=== PATIENT | male | born 1970 | race Caucasian/White ===

== ENCOUNTER 2017-06-06 05:29 | Emergency (ER) | payer BC, OTHER ==
[~2017-06-06] VITALS: Ht 188 cm; Wt 103.6 kg
[2017-06-06 05:32] VITALS: TEMP 36.5; O2SAT 94; Ht 188 cm; Wt 103.6 kg
[2017-06-06] MEDS ORDERED: NAPR1TAB9 PO (05:56)
[2017-06-06 06:10] LABS: CALCIUM 8.4 mg/dl (8.5-10.1); CREATININE 1.26 mg/dl (0.60-1.40); POTASSIUM 3.7 mmol/L (3.5-5.1)
--- NOTE | 2017-06-06 07:44 | DIAGNOSTIC IMAGING REPORT ---
CT OF THE HEAD WITHOUT CONTRAST CLINICAL HISTORY: eval for trauma COMPARISON STUDY: No previous studies for comparison. TECHNIQUE: Helical axial images of the head were obtained without IV contrast. Automated exposure control was utilized for the study. A dose lowering technique was utilized adhering to the principles of ALARA. FINDINGS: No acute intracranial hemorrhage, midline shift or mass effect is present. Brain volume is normal. Ventricular system is normal. Basilar cisterns are patent. There are no extra-axial collections. Cedillo-white differentiation is maintained. Facial bones are better depicted on the maxillofacial CT. There is no calvarial fracture. IMPRESSION: 1. No acute intracranial findings. 2. No calvarial fracture. Electronically signed by: Sivakumar Walton M.D. 06/06/2017 7:43 AM Dictated Date/Time: 06/06/2017 6:46 AM
--- NOTE | 2017-06-06 07:48 | DIAGNOSTIC IMAGING REPORT ---
MAXILLOFACIAL CT WITHOUT CONTRAST CLINICAL HISTORY: eval for trauma COMPARISON STUDY: None. TECHNIQUE: A maxillofacial CT was performed without IV contrast. Coronal and sagittal reformats were viewed. A dose lowering technique was utilized adhering to the principles of ALARA. FINDINGS: Note is made of a mildly displaced fracture of the anterior bony nasal septum. This is age indeterminate although probably old. No acute definite acute facial fracture is identified. Left inferior facial soft tissue swelling is noted. Alignment of the temporomandibular joints is anatomic. The globes are intact. There is no retrobulbar hematoma. No skull base fracture is identified. There is mild mucosal thickening of the sinuses. IMPRESSION: 1. Mildly displaced anterior nasal septal fracture which is age indeterminate although probably old. No additional facial fractures. 2. Left inferior facial soft tissue swelling. Electronically signed by: Sivakumar Walton M.D. 06/06/2017 7:47 AM Dictated Date/Time: 06/06/2017 7:43 AM
--- NOTE | 2017-06-06 07:55 | DIAGNOSTIC IMAGING REPORT ---
CT OF THE CERVICAL SPINE WITHOUT CONTRAST CLINICAL HISTORY: eval for trauma COMPARISON STUDY: No previous studies for comparison. TECHNIQUE: Helical axial images of the cervical spine were obtained without IV contrast. Sagittal and coronal reconstructions were viewed. A dose lowering technique was utilized adhering to the principles of ALARA. FINDINGS: Alignment of the cervical spine is anatomic. There is no acute fracture. Craniocervical junction is intact. There is moderate anterior osteophytosis. AP dimension of the canal appears congenitally narrow. There is no prevertebral edema. IMPRESSION: No acute cervical spine fracture or subluxation. Electronically signed by: Sivakumar Walton M.D. 06/06/2017 7:53 AM Dictated Date/Time: 06/06/2017 7:52 AM
[2017-06-06 09:49] VITALS: BP 133/96; PULSE 99; O2SAT 100
--- NOTE | 2017-06-06 22:39 | EMERGENCY ROOM VISIT NOTE ---
History Report prepared by Javier: Kymberly Richter Under the Supervision of: Dr. Kavya Zuniga D.O. First contact with patient: 05:30 Chief Complaint: ALCOHOL OVERDOSE Stated Complaint: ALCOHOL Nursing Triage Summary: pt arrives ALS from a friend's house. pt was drinking Vodka. unknown amount. pt was found by friends son, unresponsive and vomiting. pt has swelling and abrasions to L face. pt arousable. answers name, birthdate, questions appropriately. pt unable to say where he is, what brought him to the hospital or how much he was drinking. pt dry heaving upon arrival. History of Present Illness The patient is a 47 year old male who presents to the Emergency Room with complaints of an episode of alcohol overdose occurring prior to arrival. The patient states that he is from [place], [place] and is here visiting a friend. He states that they were drinking vodka. The patient's friend states that the patient fell while trying to go home. He states that he did hit his head and is unsure if he lost consciousness, although he does not think so. Per nursing staff, the patient was found by his friend's son unresponsive in a pile of vomit. The patient denies neck pain, back pain, hand pain, and head pain. He denies using any drugs. Source of History: patient, friend, nursing staff Onset: prior to arrival Position: other (global) Quality: other (overdose) Timing: other (episode) Associated Symptoms: + vomiting, No LOC, No neck pain, No back pain Note: The patient complains of being unresponsive. the patient denies hand pain and head pain. Review of Systems See HPI for pertinent positives & negatives. A total of 10 systems reviewed and were otherwise negative. Past Medical & Surgical Medical Problems: (1) No Known Active Medical Problems Family History No pertinent family history Social History Alcohol Use: occasionally Drug Use: none Marital Status: single Housing Status: lives alone Occupation Status: employed Current/Historical Medications Scheduled PRN Naproxen (Aleve), 220-440 MG PO DIRECTED PRN for Pain Allergies Coded Allergies: No Known Allergies (Unverified , 06/06/17) Physical Exam Vital Signs Date Time Temp Pulse Resp B/P (MAP) Pulse Ox O2 Delivery O2 Flow Rate FiO2 06/06/17 09:49 99 18 133/96 100 06/06/17 07:27 94 18 154/94 100 Nasal Cannula 2.0 06/06/17 06:00 91 16 173/120 94 Room Air 06/06/17 05:40 92 06/06/17 05:32 36.5 110 19 196/125 96 Room Air 06/06/17 05:32 94 Room Air Physical Exam General: Cooperative and smells of alcohol. HEENT: Head - normocephalic. Abrasions to the left side of his face. Possible disconjugate gaze. Pupils are 4 mm and sluggishly reactive to light. Sclera are anicteric. Ears - bilaterally patent canals with no evidence of hemotympanum. Nose - moist nasal mucosa without evidence of trauma or discharge. Mouth - moist buccal mucosa with no trauma to the teeth or signs of malocclusion. Neck: The neck is supple and there is no pain to palpation over the posterior cervical spine and no obvious step-offs or deformities. There is no JVD or tracheal deviation. Chest: There are no signs of deformities, contusions or abrasions to the chest wall. There is no obvious crepitus or paradoxical chest rise. Heart: Regular, rate, and rhythm. There is a normal S1 and S2 with no murmurs, clicks, or gallops appreciated. Lungs: Clear to auscultation bilaterally with no wheezes, rales, or rhonchi. Abdomen: Soft, completely nontender, nondistended, with good bowel sounds. There is no sign of trauma such as contusions, abrasions or penetrations. There are no palpable pulsatile masses or hepatosplenomegaly. There is no guarding, rigidity, or rebound noted. Pelvis: Stable to rock and compression. Extremities: No obvious trauma, deformities, contusions, or edema. There are easily palpable peripheral pulses. Neuro: The patient is awake and alert and easily able to follow commands. Muscle strength is 5 out of 5 in all 4 extremities. Otherwise, neuro exam is unremarkable. Back: The entire thoracic, lumbar, and sacral spine were palpated. There are no obvious step-offs or deformities noted. There are no obvious signs of trauma such as contusions abrasions penetrations noted to the back. Medical Decision & Procedures ER Provider Diagnostic Interpretation: Radiology results as stated below per my review and the radiologist's interpretation: CT HEAD: No acute infarct, hemorrhage, mass or edema. No acute calvarial abnormality. Radiologist: Chad Hess MD Study ready at 06:19 and initial results transmitted at 06:42. CT C SPINE: No acute fracture or traumatic malalignment. Multilevel degenerative changes. Radiologist: Chad Hess MD Study ready at 06:27 and initial results transmitted at 06:43. CT FACIAL: Age-indeterminate fracture of the anterior nasal septum, likely remote. No other facial or bone fracture identified. Globes and orbits are intact. Mild mucosal thickening of the paranasal sinuses. Multifocal areas of soft tissue swelling, likely posttraumatic. Radiologist: Chad Hess MD Study ready at 06:20 and initial results transmitted at 06:58. Laboratory Results 06/06/17 05:36 Test 06/06/17 05:36 Anion Gap 8.0 mmol/L (3-11) Est Creatinine Clear Calc Drug Dose 92.1 ml/min Estimated GFR () 77.7 Estimated GFR (Non- 67.0 BUN/Creatinine Ratio 12.8 (10-20) Calcium Level 8.4 mg/dl (8.5-10.1) Ethyl Alcohol mg/dL 286.0 mg/dl (0-3) Laboratory results per my review. ED Course 0546: Past medical records reviewed. The patient was evaluated in room B12B. A complete history and physical exam was performed. Laboratory studies were drawn as above. The patient was observed on the cyber security manager and pulse oximeter. He will go for CT scan of the brain, face and cervical spine 0722: I reevaluated the patient and he was asleep. I woke him up and he is still confused. His O2 sats drop and so he is on supplemental O2. The friend is at the bedside. They will rest here until more sober. 9:30: Upon reevaluation, the patient is feeling better but is still tired. His friend remains asleep at the bedside. Once they are more sober and awake they will be discharged. Medical Decision The patient is a 47 year old male who presents to the Emergency Room with complaints of an episode of alcohol overdose occurring prior to arrival. Differential diagnoses include alcohol overdose, drug intoxication, hypoglycemia , head injury, facial bone fractures. LABS: Alcohol 286 Normal renal function Glucose 141 This is a 47-year-old male patient who was found unresponsive in a pile of vomit after consuming too much alcohol. The patient had some traumatic injuries to the left side. He went for a CAT scan of his brain, cervical spine and facial bones which was unremarkable for significant trauma. Blood alcohol content was significantly high at 286. The patient was allowed some time to sober up here in the emergency department. He will be encouraged to avoid such excessive alcohol use in the future. Medication Reconcilliation Current Medication List: was personally reviewed by me Blood Pressure Screening Patient's blood pressure: Elevated blood pressure Blood pressure disposition: Elevated BP felt to be situational Impression Primary Impression: Alcohol overdose Additional Impression: Closed head injury Scribe Attestation The scribe's documentation has been prepared under my direction and personally reviewed by me in its entirety. I confirm that the note above accurately reflects all work, treatment, procedures, and medical decision making performed by me. Departure Information Dispostion Home / Self-Care Forms HOME CARE DOCUMENTATION FORM, IMPORTANT VISIT INFORMATION Patient Instructions My [facility] Additional Instructions Avoid such excessive alcohol use in the future Rest. Take plenty of clear liquids today Use tylenol for headache. Problem Qualifiers Primary Impression: Alcohol overdose Encounter type: initial encounter Injury intent: accidental or unintentional Qualified Codes: T51.91XA - Toxic effect of unspecified alcohol , accidental (unintentional), initial encounter Additional Impression: Closed head injury Encounter type: initial encounter Qualified Codes: S09.90XA - Unspecified injury of head, initial encounter
== END 2017-06-06 09:50 | disposition home or self-care (01) ==
LOC: EDBD 05:29 → C.EDB 05:30
DX: T51.0X1A Toxic effect of ethanol, accidental (unintentional), initial encounter (principal); S00.81XA Abrasion of other part of head, initial encounter; F10.120 Alcohol abuse with intoxication, uncomplicated; X58.XXXA Exposure to other specified factors, initial encounter; Y90.8 Blood alcohol level of 240 mg/100 ml or more